=== PATIENT | female | born 1995 | race African-American/Black ===

== ENCOUNTER 2022-10-18 16:31 | Emergency (ER) | payer SELFPAY ==
[~2022-10-18] VITALS: Ht 157.5 cm; Wt 108.0 kg
[2022-10-18] MEDS ORDERED: ACETAMINOPHEN 325MG TABLET PO ONE (21:00)
[2022-10-18] MEDS ORDERED: ONDANSETRON 4MG ODT PO ONE (21:00)
[2022-10-18 21:35] LABS: BASOPHILS % 0.4 % (0.0-2.0); EOSINOPHILS % 0.3 % (0.0-5.0); HEMATOCRIT. 40.2 % (36.0-48.0); HEMOGLOBIN. 13.1 g/dL (12.0-16.0); LYMPHOCYTES % 41.3 % (20.0-50.0); MEAN CORPUSCULAR HEMOGLOBIN 26.6 pg (28.0-32.0); MEAN CORPUSCULAR VOLUME 81.9 fL (81.0-99.0); MEAN PLATELET VOLUME 8.3 fl (7.4-10.4); MONOCYTES % 7.4 % (2.0-8.0); NEUTROPHILS % 50.6 % (40.0-76.0); PLATELET 321 x1000/uL (130-400); RED BLOOD CELL COUNT 4.91 mill/uL (4.2-5.4); RED CELL DISTRIBUTION WIDTH 15.9 % (11.6-14.6)
[2022-10-18 21:42] LABS: CHLORIDE 102 mEq/L (98-107)
[2022-10-18 21:45] LABS: HCG SCREEN NEGATIVE
[2022-10-18 21:48] LABS: ETHANOL BLOOD < 10 mg/dL
[2022-10-18 22:00] VITALS: BP 112/62
[2022-10-18 22:21] LABS: *AMPHETAMINES SCREEN URINE NEGATIVE (NEGATIVE); *BARBITURATES SCREEN URINE NEGATIVE (NEGATIVE); *BENZODIAZEPINES SCREEN URINE NEGATIVE (NEGATIVE); *COCAINE SCREEN URINE NEGATIVE (NEGATIVE); METHADONE URINE SCREEN NEGATIVE (NEGATIVE); OPIATES URINE SCREEN NEGATIVE (NEGATIVE); PHENCYCLIDINE URINE SCREEN NEGATIVE (NEGATIVE)
[2022-10-18 22:21] LABS: COLOR URINE DARK YELLOW (YELLOW)
[2022-10-18 22:22] LABS: CLARITY URINE CLOUDY (CLEAR); PROTEIN URINE 1+ (NEGATIVE); SPECIFIC GRAVITY URINE 1.025 (1.005-1.030)
[2022-10-18 22:23] LABS: KETONES URINE 3+ (NEGATIVE); LEUKOCYTE ESTERASE URINE 2+ (NEGATIVE); NITRITE URINE NEGATIVE (NEGATIVE); OCCULT BLOOD URINE 3+ (NEGATIVE)
[2022-10-18 22:25] LABS: CANNABINOID URINE SCREEN PRESUMTIVE POSITIVE (NEGATIVE)
[2022-10-18] MEDS ORDERED: ONDA4TAB50 MT (22:59)
[2022-10-18] MEDS ORDERED: CEPH500C2 MT (22:59)
[2022-10-18] MEDS ORDERED: CEPHALEXIN 250MG CAPSULE PO NR (23:00)
== END 2022-10-18 22:00 | disposition home or self-care (01) ==
LOC: ER 16:31
DX: N39.0 Urinary tract infection, site not specified (principal); D64.9 Anemia, unspecified
CPT/HCPCS: 36415; 80053; 80305; 80320; 81003; 81025; 83690; 84703; 85025; 99283; Q0162; G0480